=== PATIENT | female | born 2000 | race Native Hawaiian/Other Pacific Islander ===

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

== ENCOUNTER 2021-09-01 16:24 | Emergency (ER) | payer OTHER ==
[2021-09-01 16:42] VITALS: BP 134/88; PULSE 108; TEMP 97.9; BMI 35.6
[2021-09-01] MEDS ORDERED: LIDOCAINE HCL 1%, 10 MG/ML (50 mL VIAL) SQ ONE (17:30)
[2021-09-01] MEDS ORDERED: BUPIVACAINE HCL/PF 0.5% (5 MG/ML) 30 ML VIAL IJ ONE (17:33)
[2021-09-01] MEDS ORDERED: BUPIVACAINE HCL/PF 0.5% (5MG/ML) 10 ML VIAL ONE (17:35)
== END 2021-09-01 18:23 | disposition home or self-care (01) ==
LOC: JERFT 16:24
DX: K08.89 Other specified disorders of teeth and supporting structures (principal)
CPT/HCPCS: 99283-25